=== PATIENT | male | born 1965 | race Two or more races ===

== ENCOUNTER 2019-05-23 17:45 | Inpatient (IN) | payer MEDICARE, BC ==
[~2019-05-23] VITALS: Ht 185.4 cm; Wt 98.9 kg
[2019-05-23 20:30] VITALS: BP 153/80
--- NOTE | 2019-05-23 20:30 | NUR ---
GPS ADMISSION NOTES: ADMITTED THIS 53-Y/O, MALE, HOMELESS. PATIENT ADMITTED ON 5150 HOLD FOR DTO/GD. PER HOLD PT. WAS DISHEVELED, UNCOOPERATIVE, AGGRESSIVE, AGITATED, SLAPPING AT THE DOOR, SCREAMING AND YELLING AT STAFF IN THE CONTEXT OF PARANOID DELUSIONS, BUT MAKING VERY LITTLE SENSE. UPON FACE TO FACE ASSESSMENT, PATIENT IS A&O X2, FEELING DEPRESSED, COOPERATIVE WITH CARE. VERBALIZATION OF FEELING ENCOURAGED. DENIES SI/HI/AVH AT THIS TIME. IN NO APPARENT DISTRESS NOTED. SKIN BODY ASSESSMENT DONE AND NOTED WITH RIGHT ELBOW OPEN WOUND. WOUND CONSULT ORDERED. PT ADVISED OF THE HOLD. PT RIGHTS HANDBOOK AND GUIDELINES BOOK GIVEN & DISCUSSED TO THE PATIENT. PT BELONGINGS WERE INVENTORIED & CHECKED FOR CONTRABAND. PT. IS UNDER THE PSYCHIATRIC CARE OF DR. CANADA, ORDERS OBTAINED & UNDER THE MEDICAL CARE OF DR. KUHN. PATIENT EDUCATED TO THE USE OF CALL LALA. BED ALARM ON. ENVIRONMENTAL SAFETY CHECK DONE. BED LOCKED & IN LOW POSITION. WILL CONTINUE TO MONITOR Q15 MINUTES FOR SAFETY & BEHAVIOR. Addendum: 05/24/19 at 0704 by CHACHO ALFRED RN PATIENT CONTINUES TO REFUSE MEPILEX ON HIS RIGHT ELBOW DESPITE OF EXPLANATION RISKS AND BENEFITS. WILL CONTINUE TO MONITOR.
[2019-05-23] MEDS ORDERED: DOXY50SY PO (21:28)
[2019-05-23] MEDS ORDERED: DIVA500T2 PO (21:28)
[2019-05-23] MEDS ORDERED: OLAN15TA3 PO (21:28)
[2019-05-23] MEDS ORDERED: MULT-635 PO (21:28)
[2019-05-23] MEDS ORDERED: LORAZEPAM 0.5 MG TABLET PO PRN (21:30)
[2019-05-23] MEDS ORDERED: MAGNESIUM HYDROXIDE 30 ML UDC PO PRN (21:30)
[2019-05-23] MEDS ORDERED: BLOOD SUGAR DIAGNOSTIC 1 EACH STRIP IN ONE (21:30)
[2019-05-23] MEDS ORDERED: MAG HYDROX/AL HYDROX/SIMETH 30 ML UDC PO PRN (21:30)
[2019-05-23] MEDS ORDERED: HALO100A2 IM (21:36)
[2019-05-24 07:47] LABS: CHOLESTEROL 150 mg/dL (<200); HDL CHOLESTEROL 46 mg/dL (40-60); LDL 90 mg/dL (0-99); TRIGLYCERIDES 79 mg/dL (30-150)
[2019-05-24 08:00] VITALS: BP 143/72
[2019-05-24] MEDS: NICOTINE PATCH (21MG) 21 MG PATCH.TD24 TD SCH (09:00)
[2019-05-24] MEDS: MULTIVIT W/MINERALS 1 TAB TABLET PO SCH (09:00)
[2019-05-24] MEDS: HALOPERIDOL 5 MG TABLET PO SCH ×2 (10:35→16:55)
[2019-05-24] MEDS: BENZTROPINE MESYLATE (1 MG) 1 MG TABLET PO SCH ×2 (10:35→16:55)
[2019-05-24] MEDS: DIVALPROEX SODIUM 500 MG TABLET.DR PO SCH ×2 (10:35→22:16)
--- NOTE | 2019-05-24 10:56 | NUR ---
WOUND CARE CONSULT: PT NOT SEEN FOR SKIN ASSESSMENT TODAY DUE TO RN AND MD REPORTING THAT PT IS VERY AGGRESSIVE AT THIS TIME. WILL SEE PT PT CONDITION PERMITS. PER NURSING ASSESSMENT AND ADMISSION PHOTOS, PT HAS WOUND TO RT ELBOW. DR DIETZ CONSULTED FOR SURGICAL CONSULT. CURRENT PERNELL SCORE IS 21.
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
[2019-05-24 11:48] LABS: ALBUMIN 3.2 g/dL (3.4-5.0); BILIRUBIN,TOTAL 0.3 mg/dL (0.2-1.0); CALCIUM, SERUM 8.4 mg/dL (8.5-10.1); CREATININE 0.7 mg/dL (0.6-1.3); POTASSIUM 4.3 mmol/L (3.5-5.1); TOTAL PROTEIN, SERUM 6.3 g/dL (6.4-8.2)
[2019-05-24] MEDS: THERAHONEY GEL 1.5 OZ TUBE TP SCH (12:00)
--- NOTE | 2019-05-24 12:28 | NUR ---
INITIAL DISCHARGE PLAN: Pts mother Lisa [phone] wishes for pt to return home [address] [place] [address]. Per pt he wants to return to "[facility] on a bus" and says he is homeless. SW will help form a safe and proper discharge in collaboration with .
--- NOTE | 2019-05-24 14:07 | NUR ---
GPS RN NOTE: PT REFUSED WOUND CARE WHEN ASKED AT NOON AND 1400. WILL TRY AGAIN LATER
[2019-05-24] MEDS: LORAZEPAM 0.5 MG TABLET PO PRN (14:56)
--- NOTE | 2019-05-24 15:28 | NUR ---
GROUP NOTE: SW encouraged pt to attend group therapy on this present day discussing "suicidality." Pt is not appropriate for group at this time, pt is selectively mute and responding to internal stimuli.
[2019-05-24 16:00] VITALS: BP 137/84
[2019-05-24] MEDS ORDERED: OLANZAPINE 10 MG VIAL IM ONE (16:30)
[2019-05-24] MEDS ORDERED: LORAZEPAM INJ 2 MG/ML VIAL IM ONE (16:30)
--- NOTE | 2019-05-24 17:33 | NUR ---
AROUND 1610 PATIENT CAME UP TO RN AND ASKED FOR "IM SHOT OF GEODON". PATIENT APPEARED AGITATED AND ANXIOUS. PATIENT ALREADY HAD PO ANTI ANXIETY MEDICATION ADMINISTERED,1MG ATIVAN PO ORDERED. PATIENT WAS REDIRECTED AND GIVEN OPTIONS FOR DIVERSION FOR HIS ANXIETY. FEW MINUTES LATER PATIENT RETURNED TO NURSING STATION REQUESTING IM MEDICATION. DR CANADA WAS PAGED. PATIENT CONTINUED TO BECOME INCREASINGLY AGITATED, WAS SNAPPING HIS FINGERS ASKING FOR IM SHOT, AND SEEMED TO BE RESPONDING TO INTERNAL STIMULI. PATIENT STATED HE FELT LIKE HE WAS SPINNING. DR CANADA CALLED BACK AROUND 1625 AND ZYPREXA 10MG IM AND ATIVAN 1MG IM WAS ORDERED. PATIENT VOLUNTARILY ACCEPTED MEDICATION ADMINISTRATION.
[2019-05-24] MEDS: ZOLPIDEM TARTRATE 10 MG TABLET PO PRN (22:20)
--- NOTE | 2019-05-24 23:54 | NUR ---
PT REFUSED WOUND CARE, ANXIOUS, RESTLESS, LABILE, REDIRECTABLE. PT ONLY WANTED SANDWICHES AND JUICE. WILL CONTINUE TO MONITOR FOR MOOD, BEHAVIOR AND SAFETY.
[2019-05-25] MEDS: MULTIVIT W/MINERALS 1 TAB TABLET PO SCH (08:18)
[2019-05-25] MEDS: DIVALPROEX SODIUM 500 MG TABLET.DR PO SCH ×2 (08:18→21:44)
[2019-05-25] MEDS: HALOPERIDOL 5 MG TABLET PO SCH ×4 (08:18→21:44)
[2019-05-25] MEDS: BENZTROPINE MESYLATE (1 MG) 1 MG TABLET PO SCH ×2 (08:18→16:27)
[2019-05-25] MEDS: NICOTINE PATCH (21MG) 21 MG PATCH.TD24 TD SCH ×2 (08:19→09:00)
[2019-05-25] MEDS: LORAZEPAM 0.5 MG TABLET PO PRN (10:31)
[2019-05-25] MEDS: THERAHONEY GEL 1.5 OZ TUBE TP SCH (10:42)
[2019-05-25] MEDS: ACETAMINOPHEN 325 MG TABLET PO PRN (13:03)
[2019-05-25] MEDS: TRAMADOL HCL 50 MG TABLET PO PRN (14:19)
--- NOTE | 2019-05-25 15:33 | NUR ---
GROUP NOTE: SW encouraged pt to attend group on this present day discussing "discharge planning." S: "I live [place] the bushes but I have a house to go to. Maybe I'll just go and live with my neighbors. I don't know where I'll go." O: Pt did not maintain eye contact and was not appropriately dressed. Pt with labile mood and got up and walked away from group. A: Pt has gained insight and is unable to verbalize a plan for discharge. P: SW will continue to encourage self-regulation of mood and encourage pt to accept his illness and engage in recovery.
[2019-05-25 16:00] VITALS: BP 135/95
[2019-05-26 08:00] VITALS: BP 119/58
[2019-05-26] MEDS: NICOTINE PATCH (21MG) 21 MG PATCH.TD24 TD SCH (09:00)
[2019-05-26] MEDS: THERAHONEY GEL 1.5 OZ TUBE TP SCH (09:00)
[2019-05-26] MEDS: DIVALPROEX SODIUM 500 MG TABLET.DR PO SCH ×2 (09:00→21:20)
[2019-05-26] MEDS: MULTIVIT W/MINERALS 1 TAB TABLET PO SCH (09:01)
[2019-05-26] MEDS: BENZTROPINE MESYLATE (1 MG) 1 MG TABLET PO SCH ×2 (09:01→16:33)
[2019-05-26] MEDS: HALOPERIDOL 5 MG TABLET PO SCH ×4 (09:02→21:20)
--- NOTE | 2019-05-26 11:12 | NUR ---
Pt. still refusing for wound dressing and application of the med to the wound. Explained on the impottance and the risk and still refusing.
[2019-05-26] MEDS: LORAZEPAM 0.5 MG TABLET PO PRN (13:13)
[2019-05-26] MEDS: TRAMADOL HCL 50 MG TABLET PO PRN (15:26)
[2019-05-26 16:00] VITALS: BP 125/68
--- NOTE | 2019-05-26 20:00 | NUR ---
PATIENT REFUSED VS
--- NOTE | 2019-05-26 22:00 | NUR ---
PATIENT IN BED, ASLEEP, AROUSEABLE BY VOICE, AGGRESSIVE, HOSTILE, DENIES SUICIDAL IDEATION AT THIS TIME, TOOK ALL MEDICATIONS, THROWING TRASH ON THE SIDE OF BED, MESSY, REFUSED WOUND CARE, WILL CONTINUE TO MONITOR Q15 MINUTES WITH THE HELP OF STAFF TO MAINTAIN SAFETY
--- NOTE | 2019-05-26 22:00 | NUR ---
PATIENT HOSTILE, THROWING THINGS ON THE RIGHT SIDE OF BED, DISHEVELLED, REFUSED WOUND CARE, TOOK ALL PM MEDS
--- NOTE | 2019-05-27 06:12 | NUR ---
PATIENT ASLEEP MOST OF THE SHIFT, GETTING UP TO VOID, STILL HOSTILE WHEN BED ALARM GOES OFF, ISOLATIVE
[2019-05-27 08:00] VITALS: BP 128/66
[2019-05-27] MEDS: THERAHONEY GEL 1.5 OZ TUBE TP SCH ×2 (09:00→14:51)
[2019-05-27] MEDS: NICOTINE PATCH (21MG) 21 MG PATCH.TD24 TD SCH (09:25)
[2019-05-27] MEDS: DIVALPROEX SODIUM 500 MG TABLET.DR PO SCH ×3 (09:25→21:15)
[2019-05-27] MEDS: BENZTROPINE MESYLATE (1 MG) 1 MG TABLET PO SCH ×2 (09:25→17:49)
[2019-05-27] MEDS: MULTIVIT W/MINERALS 1 TAB TABLET PO SCH (09:25)
[2019-05-27] MEDS: HALOPERIDOL 5 MG TABLET PO SCH ×4 (09:25→21:15)
[2019-05-27] MEDS: LORAZEPAM 0.5 MG TABLET PO PRN ×2 (10:53→18:51)
--- NOTE | 2019-05-27 11:13 | NUR ---
pt. requesting ativan,medicated with 1 mg po.
[2019-05-27] MEDS: TRAMADOL HCL 50 MG TABLET PO PRN (14:46)
--- NOTE | 2019-05-27 14:46 | NUR ---
med. for pain with ultram.
[2019-05-27 16:06] VITALS: BP 150/78
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
--- NOTE | 2019-05-27 19:53 | NUR ---
RN NOTES: PATIENT RESTING IN HIS BED, EASILY AGITED ,DISHELVED ,PARANOID DENIES SI/HI/AVH AT THIS TIME,.ENCOURAGED FOR VERBALIZATION OF FEELINGS, SAFETY PRECAUTIONS IMPLEMENTED. INTERACT WITH ENGAGED, WILL CONTINUE TO MONITOR Q15MIN ROUNDS FOR SAFETY AND BEHAVIOR.
--- NOTE | 2019-05-27 20:17 | NUR ---
RN NOTES: PT. REFUSED VITAL SIGNS , ENCOURAGED X3 STILL REFUSED, PT. BEHAVIOUR VERY UNCOOPERTIVE,
--- NOTE | 2019-05-28 06:20 | NUR ---
GPS RN CLOSING NOTE: PATIENT RESTING IN BED ASLEEP, AROUSES EASILY. NO ACUTE DISTRESS NOTED. DENIES PAIN OR DISCOMFORT.UNCOOPERTIVE, NO AGITATION NOTED AT THIS TIME/ BUT EASILY AGITAED. DENIES SI/HI/AVH AT THIS TIME. SAFETY PRECAUTIONS IMPLEMENTED.ENCOURAGED PT. TO VERBALIZED ANY FEELING, WILL CONTINUE TO MONITOR FOR PT'S SAFETY AND BEHAVIOR.
[2019-05-28] MEDS: LORAZEPAM 0.5 MG TABLET PO PRN ×3 (08:10→20:17)
[2019-05-28] MEDS: MULTIVIT W/MINERALS 1 TAB TABLET PO SCH (08:10)
[2019-05-28] MEDS: HALOPERIDOL 5 MG TABLET PO SCH ×4 (08:10→20:17)
[2019-05-28] MEDS: BENZTROPINE MESYLATE (1 MG) 1 MG TABLET PO SCH ×2 (08:10→16:57)
[2019-05-28] MEDS: DIVALPROEX SODIUM 500 MG TABLET.DR PO SCH ×3 (08:10→20:16)
[2019-05-28] MEDS: NICOTINE PATCH (21MG) 21 MG PATCH.TD24 TD SCH (08:12)
--- NOTE | 2019-05-28 08:12 | NUR ---
RN NOTE- AGITATION / PT ANXIOUS AND LOUD WITH THIS RN DURING MED PASS. ANGRY AFFECT. ATIVAN 1 MG GIVEN AT THIS TIME.
[2019-05-28] MEDS: THERAHONEY GEL 1.5 OZ TUBE TP SCH (09:00)
--- NOTE | 2019-05-28 09:06 | NUR ---
RN NOTE- MED REFUSAL/ PT REFUSING MED TREATMENT TO ELBOW. EXPLAINED BENEFITS. WILL ATTEMPT LATER.
[2019-05-28] MEDS: TRAMADOL HCL 50 MG TABLET PO PRN ×2 (10:32→18:03)
[2019-05-28 13:32] LABS: BASOPHILS % (AUTO) 0.8 % (0.0-2.0); EOSINOPHILS % (AUTO) 1.5 % (0.0-6.0); HEMATOCRIT 43 % (39-51); HEMOGLOBIN 14.2 g/dL (13.5-17.5); LYMPHOCYTES # (AUTO) 1.5 /CMM (0.8-4.8); LYMPHOCYTES % (AUTO) 24.7 % (20.0-44.0); MEAN CORPUSCULAR HGB CONC 33 g/dl (31.0-36.0); MEAN CORPUSCULAR VOLUME 86 fL (80-96); MONOCYTES # (AUTO) 0.6 /CMM (0.1-1.30); MONOCYTES % (AUTO) 10.6 % (2.0-12.0); NEUTROPHILS # (AUTO) 3.7 /CMM (1.8-8.9); NEUTROPHILS % (AUTO) 62.4 % (43.0-81.0); PLATELET COUNT (AUTO) 368 /CMM (150-450); WHITE BLOOD COUNT (AUTO) 5.9 K/uL (4.3-11.0)
--- NOTE | 2019-05-28 13:40 | NUR ---
RN NOTE- AGITATION/ PT W AGITATION. REQUESTED PRN. ATIVAN 1 MG GIVEN.
[2019-05-28 14:28] LABS: ALBUMIN 3.6 g/dL (3.4-5.0); BILIRUBIN,TOTAL 0.5 mg/dL (0.2-1.0); CREATININE 0.8 mg/dL (0.6-1.3); TOTAL PROTEIN, SERUM 6.9 g/dL (6.4-8.2)
--- NOTE | 2019-05-28 15:00 | NUR ---
RN NOTE-WOUND CARE/ PT WOUND CARE DONE . RT ELBOW CLEANSED W NS, DRIED W 4X4 GAUZE. THERA-HONEY GEL APPLIED W APPLICATOR AND DRESSING APPLIED. TOLERATED WELL.
[2019-05-28 16:00] VITALS: BP 142/68
[2019-05-28] MEDS ORDERED: HALOPERIDOL LACTATE INJ 5 MG/ML VIAL IM ONE (16:00)
[2019-05-28] MEDS ORDERED: BENZTROPINE MESYLATE (2MG/2ML) 2 MG/2 ML AMPUL IM ONE (16:00)
--- NOTE | 2019-05-28 16:00 | NUR ---
RN NOTE-AGITATION/ PT WITH INCREASING AGITATION, RESPONDING TO INTERNAL STIMULUS, ROLLING ON FLOOR, CLAPPING HANDS LOUDLY AND TALKING LOUDLY. DR WU ORDERED [id number] MG IM WITH COGENTIN 2 MG IM. PT GIVEN INJECTIONS WITH PATIENTS COMPLIANCE,. SECURITY AND RADIO SALES ACCOUNT EXECUTIVE IN ATTENDANCE. MONITORING BEHAVIOR Addendum: 05/28/19 at 1759 by RYLEE ANDINO RN RN NOTE- ADDENDUM. ABOVE AGITATION ENTRY AND MEDICATION ADMINISTRATION WAS DONE AT PATIENT REQUEST.
[2019-05-28 20:19] VITALS: BP 117/44
--- NOTE | 2019-05-28 20:20 | NUR ---
Pt c/o anxiety. Least restrictive measures ineffective. Ativan 1 mg po given as ordered. Will continue to monitor.
--- NOTE | 2019-05-28 21:30 | NUR ---
Post 1 hour ativan effective. Pt is calm in bed. Will continue to monitor.
[2019-05-28] MEDS: ZOLPIDEM TARTRATE 10 MG TABLET PO PRN (21:32)
--- NOTE | 2019-05-28 21:33 | NUR ---
Pt c/o insomnia. Least restrictive measures ineffective. Ambien 10 mg po given as ordered. Will continue to monitor.
--- NOTE | 2019-05-28 22:38 | NUR ---
Post 1 hr rikiien effective. Pt asleep in bed easy to arouse. Will continue to monitor. Frequent visual check done for safety.
[2019-05-29 08:00] VITALS: BP 116/64
[2019-05-29] MEDS: MULTIVIT W/MINERALS 1 TAB TABLET PO SCH (08:18)
[2019-05-29] MEDS: BENZTROPINE MESYLATE (1 MG) 1 MG TABLET PO SCH ×2 (08:18→17:08)
[2019-05-29] MEDS: NICOTINE PATCH (21MG) 21 MG PATCH.TD24 TD SCH (08:19)
[2019-05-29] MEDS: HALOPERIDOL 5 MG TABLET PO SCH ×4 (08:19→17:08)
[2019-05-29] MEDS: DIVALPROEX SODIUM 500 MG TABLET.DR PO SCH ×3 (08:19→21:29)
[2019-05-29] MEDS: THERAHONEY GEL 1.5 OZ TUBE TP SCH (08:24)
--- NOTE | 2019-05-29 09:05 | NUR ---
RN NOTE-MEDICATIONS/ DR CANADA SAW PT. INCREASED PTS HALDOL 10 MG TID FROM HALDOL 5 MG QID. INFORMED MD OF RECENT HALDOL 5 MG ADMINISTRATION. ORDERED ANOTHER HALDOL 10 MG TO START NOW. COMPLYING.
[2019-05-29] MEDS: LORAZEPAM 0.5 MG TABLET PO PRN (10:47)
[2019-05-29] MEDS: TRAMADOL HCL 50 MG TABLET PO PRN ×2 (10:48→17:08)
--- NOTE | 2019-05-29 10:48 | NUR ---
RN NOTE-AGITATION/ PT REQUESTING PRN FOR ANXIETY. ATIVAN 1 MG GIVEN AT THIS TIME.
--- NOTE | 2019-05-29 14:05 | NUR ---
RN NOTE-WOUND CARE/ PT WOUND CARE DONE . RT ELBOW CLEANSED W NS, DRIED W 4X4 GAUZE. PINK GRANULATION TISSUE. MINIMAL EXUDATE. NO PURULENCE. NO ODOR. PT STATES MINIMAL PAIN. THERA-HONEY GEL APPLIED W APPLICATOR AND DRESSING APPLIED. TOLERATED WELL.
[2019-05-29] MEDS ORDERED: LORAZEPAM INJ 2 MG/ML VIAL IM STA (14:57)
[2019-05-29] MEDS ORDERED: OLANZAPINE 10 MG VIAL IM STA (14:57)
[2019-05-29 14:58] LABS: BASOPHILS # (AUTO) 0.1 /CMM (0.0-0.2); BASOPHILS % (AUTO) 0.8 % (0.0-2.0); EOSINOPHILS % (AUTO) 1.3 % (0.0-6.0); HEMATOCRIT 40 % (39-51); HEMOGLOBIN 13.2 g/dL (13.5-17.5); LYMPHOCYTES # (AUTO) 1.6 /CMM (0.8-4.8); LYMPHOCYTES % (AUTO) 24.9 % (20.0-44.0); MEAN CORPUSCULAR HGB CONC 33 g/dl (31.0-36.0); MEAN CORPUSCULAR VOLUME 85 fL (80-96); MONOCYTES # (AUTO) 0.6 /CMM (0.1-1.30); MONOCYTES % (AUTO) 9.9 % (2.0-12.0); NEUTROPHILS % (AUTO) 63.1 % (43.0-81.0); PLATELET COUNT (AUTO) 304 /CMM (150-450); RED BLOOD CELL COUNT(AUTO) 4.65 MIL/uL (4.5-6.0); WHITE BLOOD COUNT (AUTO) 6.4 K/uL (4.3-11.0)
--- NOTE | 2019-05-29 15:19 | NUR ---
RN NOTE-AGITATION/ PT RESPONDING TO INTERNAL STIMULUS. CLAPPING LOUDLY, PACING, BECOMING AGGRESSIVE, HEARING THINGS - "A COMPUTER TWO HOUSES AWAY IS PLACING THINGS IN MY BRAIN" PT REQUESTED IM SHOT. DR CANADA ORDERED ZYPREXA 10 MG AND ATIVAN 1 MG IM. GIVEN W STAFF PRESENT. TOLERATED WELL.
[2019-05-29 15:23] LABS: ALBUMIN 3.5 g/dL (3.4-5.0); BILIRUBIN,TOTAL 0.4 mg/dL (0.2-1.0); CALCIUM, SERUM 8.6 mg/dL (8.5-10.1); CREATININE 0.7 mg/dL (0.6-1.3); POTASSIUM 3.9 mmol/L (3.5-5.1); TOTAL PROTEIN, SERUM 6.5 g/dL (6.4-8.2)
[2019-05-29] MEDS ORDERED: BENZTROPINE MESYLATE (2MG/2ML) 2 MG/2 ML AMPUL IM ONE (15:30)
--- NOTE | 2019-05-29 15:36 | NUR ---
GROUP NOTE: GUSTABO encouraged pt to attend group on this present day discussing "discharge planning." Pt refused to attend group. Pt is not appropriate for group at this time. Pt is actively responding to internal stimuli and is pacing the hallway and is restless. Addendum: 05/29/19 at 1542 by SURENDRA MONTEJO ERROR
--- NOTE | 2019-05-29 15:42 | NUR ---
GROUP NOTE: GUSTABO encouraged pt to attend group on this present day discussing "mood-compliance." Pt refused to attend group. Pt is not appropriate for group at this time. Pt is actively responding to internal stimuli and is pacing the hallway and is restless. Addendum: 05/29/19 at 1542 by SURENDRA MONTEJO "Mood-regulation."
[2019-05-29 16:00] VITALS: BP 102/61
--- NOTE | 2019-05-29 16:28 | NUR ---
RN NOTE-AGITATION FOLLOW UP/ PT CALMER AND DIRECTABLE AFTER ZYPREXA AND ATIVAN IM. PT CALM IN ROOM AND MARTÍNEZ. DECREASED SYMPTOMS. RX EFFECTIVE
--- NOTE | 2019-05-29 19:57 | NUR ---
GPS RN OPENING NOTES: PATIENT RESTING IN HIS BED, EASILY AGITED ,DISHELVED ,PARANOID DENIES SI/HI/AVH AT THIS TIME,.ENCOURAGED FOR VERBALIZATION OF FEELINGS, SAFETY PRECAUTIONS IMPLEMENTED. INTERACT WITH ENGAGED, WILL CONTINUE TO MONITOR Q15MIN ROUNDS FOR SAFETY AND BEHAVIOR.
--- NOTE | 2019-05-30 06:30 | NUR ---
GPS RN CLOSING NOTE: PATIENT IN BED ASLEEP,COMFORTABLY, NO ACUTE DISTRESS NOTED. DENIES PAIN OR DISCOMFORT. NO AGITATION NOTED IN DURING SHIFT. NO BEHAVIOR PROBLEMS NOTED ,DENIES SI/HI/AVH AT THIS TIME. SAFETY PRECAUTIONS IMPLEMENTED.ALL NEEDS ATTENDED AND ANTICIPATED, ENCOURGED FOR VERBALIZED ANY FEELING ,BED ALARM ON AND IN LOCKED POSITION. WILL CONTINUE TO MONITOR FOR PT'S SAFETY AND BEHAVIOR .
[2019-05-30 08:00] VITALS: BP 112/68
[2019-05-30] MEDS: THERAHONEY GEL 1.5 OZ TUBE TP SCH (09:00)
[2019-05-30] MEDS: NICOTINE PATCH (21MG) 21 MG PATCH.TD24 TD SCH (09:00)
[2019-05-30] MEDS: MULTIVIT W/MINERALS 1 TAB TABLET PO SCH (09:54)
[2019-05-30] MEDS: DIVALPROEX SODIUM 500 MG TABLET.DR PO SCH ×4 (09:54→21:56)
[2019-05-30] MEDS: HALOPERIDOL 5 MG TABLET PO SCH ×3 (09:54→16:12)
[2019-05-30] MEDS: BENZTROPINE MESYLATE (1 MG) 1 MG TABLET PO SCH ×2 (09:54→16:12)
[2019-05-30] MEDS: LORAZEPAM 0.5 MG TABLET PO PRN (10:15)
--- NOTE | 2019-05-30 10:16 | NUR ---
GPS/RN-NOTES PATIENT REQUESTING ATIVAN. ATIVAN 1MG P.O GIVEN PRN ORDER.
--- NOTE | 2019-05-30 10:33 | NUR ---
GPS/RN-NOTES PATIENT REFUSED WOUND TREATMENT ,EXPLAINED RISK AND BENEFITS BUT PATIENT GETS ANGRY.
[2019-05-30] MEDS ORDERED: OLANZAPINE 10 MG VIAL IM ONE (13:30)
--- NOTE | 2019-05-30 13:31 | NUR ---
GPS/RN-NOTES NOTED PATIENT WITH INTIMIDATING WITH LOUD VOICE ,DISROBING ,TOUCHING STAFF IN HER BACK. REDIRECTED PATIENT,STATED" GIVE ME MY MEDICATION SHOT" .DR. CANADA MADE AWARE WITH T.O ORDER OF ZYPREXA 10MG IM X1. NOTED AND CARRIED OUT.
--- NOTE | 2019-05-30 14:00 | NUR ---
GPS /RN-NOTES PATIENT LAYING IN BED CALM,NO ACUTE DISTRESS NOTED.
[2019-05-30 16:00] VITALS: BP 117/50
--- NOTE | 2019-05-30 22:54 | NUR ---
GPS RN NOTE PT REFUSED 2100 MEDICATION DEPAKOTE 500MG 1 TAB PO. PT WAS A LITTLE IRRITABLE AND STATED "I DON'T WANT TO TAKE ANY MEDICATION TONIGHT". TEACHING PROVIDED BY SKILLED NURSE ON THE IMPORTANCE OF MEDICATION COMPLIANCE. PT IN BED. WILL CONTINUE TO MONITOR.
--- NOTE | 2019-05-31 07:06 | NUR ---
RN NOTES PT APPEARS DEPRESSED, IRRITABLE, COMMANDING, WITHDRAWN AND ISOLATIVE. REFUSED V/S, PM MEDICATION, AND WOUND CARE. SLEPT MOST OF THE NIGHT. WILL CONTINUE TO MONITOR AND ENDORSE TO AM NURSE.
[2019-05-31 08:00] VITALS: BP 126/68
[2019-05-31] MEDS: THERAHONEY GEL 1.5 OZ TUBE TP SCH (09:00)
[2019-05-31] MEDS: NICOTINE PATCH (21MG) 21 MG PATCH.TD24 TD SCH ×2 (09:00→09:35)
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
[2019-05-31] MEDS: BENZTROPINE MESYLATE (1 MG) 1 MG TABLET PO SCH ×2 (09:35→17:52)
[2019-05-31] MEDS: HALOPERIDOL 5 MG TABLET PO SCH ×4 (09:35→21:00)
[2019-05-31] MEDS: MULTIVIT W/MINERALS 1 TAB TABLET PO SCH (09:35)
[2019-05-31] MEDS: DIVALPROEX SODIUM 500 MG TABLET.DR PO SCH ×3 (09:38→21:00)
[2019-05-31] MEDS: HYDROGEL DRESSING 90 GM TUBE TP SCH (11:30)
[2019-05-31] MEDS: LORAZEPAM 0.5 MG TABLET PO PRN (12:05)
[2019-05-31] MEDS ORDERED: HALOPERIDOL 5 MG TABLET PO SCH (13:00)
--- NOTE | 2019-05-31 14:16 | NUR ---
Group Note: SW invited the patient to attend group therapy on 05/31/2019 1 pm to discuss "what changes they would like to see in their lives as a result of their stay in [facility]". SW assessed the patient's ability to participate in therapy. The pt. is not appropriate for group therapy as he presents with agitation, aggression and pacing the halls.
--- NOTE | 2019-05-31 15:50 | NUR ---
Family Contact: SW called the pts mother Lisa ([phone]) and informed her that the pts hearing was upheld.
[2019-05-31 16:00] VITALS: BP 125/71
--- NOTE | 2019-05-31 17:00 | NUR ---
NURSING NOTE: PT REQUESTED DRESSING CHANGE ON HIS RIGHT ELBOW FOR THE SECOND TIME. DRESSING CHANGE WAS DONE PER PT REQUEST. PT THEN DECIDED TO REMOVE THE DRESSING AGAIN ALTHOUGH WAS TOLD NOT TO. PT KEEPS ASKING FOR SOMETHING TO HELP PT GO TO SLEEP. REALITY ORIENTATION HAS BEEN DONE. WILL CONTINUE TO MONITOR.
[2019-05-31 20:54] VITALS: BP 132/82
[2019-06-01] MEDS: NICOTINE PATCH (21MG) 21 MG PATCH.TD24 TD SCH (08:34)
[2019-06-01] MEDS: HALOPERIDOL 5 MG TABLET PO SCH ×4 (08:34→21:32)
[2019-06-01] MEDS: BENZTROPINE MESYLATE (1 MG) 1 MG TABLET PO SCH ×2 (08:34→16:45)
[2019-06-01] MEDS: DIVALPROEX SODIUM 500 MG TABLET.DR PO SCH ×3 (08:34→21:32)
[2019-06-01] MEDS: MULTIVIT W/MINERALS 1 TAB TABLET PO SCH (08:35)
[2019-06-01] MEDS: LORAZEPAM 0.5 MG TABLET PO PRN ×2 (08:43→14:43)
[2019-06-01] MEDS: HYDROGEL DRESSING 90 GM TUBE TP SCH (09:00)
--- NOTE | 2019-06-01 10:02 | NUR ---
GPS RN OPENING NOTE: RECEIVED PATIENT IN BED RESTING. PATIENT COMPLIES WITH MEDICATION ADMINISTRATION. REQUESTED ATIVAN FOR ANXIETY. ADMINISTERED ORDERED.DENIES SI/ HI BUT CURRENTLY HAS AUDITORY HALLUCINATIONS.ENVIRONMENTAL SAFETY CHECKS DONE. ALL NEEDS ATTENDED TO. NO SIGNS OF DISTRESS NOTED. WILL CONTINUE TO MONITOR Q15 FOR SAFETY AND BEHAVIOR
--- NOTE | 2019-06-01 10:03 | NUR ---
REFUSED WOUND CARE THIS AM.
--- NOTE | 2019-06-01 11:02 | NUR ---
FAMILY CONTACT: and GUSTABO called the pts mother Lisa ([phone]) to discuss pts discharge and treatment plan. Mother is opposing discharge as she states pt is not stable. explained that pt has not been aggressive and has been complaint with treatment therefore he is anticipating discharge for Wednesday06/05/19. Mother was angry and kept interrupting the MD stating that she wants pt to be hospitalized longer. explained that if pt is no longer meeting criteria for acute psychiatric hospitalization per [place] Mental Health Law and Medicare Law, MD is unable to keep pt here longer. explained that it appears that mother is unable to care for pt and recommended pt be referred to a SNF and stated that if pt refuses he may be referred to a correction. MD informed mother that he will adjust medication for continued stabilization. Mother agreed.
--- NOTE | 2019-06-01 12:27 | NUR ---
SNF REFERRAL: GUSTABO faxed SNF referral to [facility] Address: [address] [place] [address] for review.
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
[2019-06-01] MEDS: OLANZAPINE 5 MG/TAB.RAPDIS PO SCH ×2 (13:42→16:45)
--- NOTE | 2019-06-01 14:00 | NUR ---
SNF REFERRAL: GUSTABO faxed SNF referral to Thien real estate marketing coordinator at [facility] Address: [address], [place] [address] for review.
--- NOTE | 2019-06-01 14:35 | NUR ---
SNF REFERRAL: SW received a call from Thien environmental systems coordinator at [facility] Address: [address] [place] [address] stating pt has been accepted to the facility.
--- NOTE | 2019-06-01 15:15 | NUR ---
PUBLIC GUARDIAN: GUSTABO contacted [facility] Public Guardian Address: [address], [place] [address] and spoke to a credit clerk who stated pts case has been closed and is no longer under LPS conservatorship.
[2019-06-01] MEDS: TRAMADOL HCL 50 MG TABLET PO PRN (15:41)
[2019-06-01 16:00] VITALS: BP 124/64
[2019-06-01] MEDS: ACETAMINOPHEN 325 MG TABLET PO PRN (17:17)
[2019-06-01] MEDS: ZOLPIDEM TARTRATE 10 MG TABLET PO PRN (21:30)
[2019-06-02] MEDS: DIVALPROEX SODIUM 500 MG TABLET.DR PO SCH ×3 (07:48→21:10)
[2019-06-02] MEDS: MULTIVIT W/MINERALS 1 TAB TABLET PO SCH (08:34)
[2019-06-02] MEDS: HALOPERIDOL 5 MG TABLET PO SCH ×4 (08:34→21:10)
[2019-06-02] MEDS: OLANZAPINE 5 MG/TAB.RAPDIS PO SCH ×3 (08:34→16:16)
[2019-06-02] MEDS: NICOTINE PATCH (21MG) 21 MG PATCH.TD24 TD SCH (08:34)
[2019-06-02] MEDS: BENZTROPINE MESYLATE (1 MG) 1 MG TABLET PO SCH ×2 (08:34→16:02)
[2019-06-02] MEDS: HYDROGEL DRESSING 90 GM TUBE TP SCH (09:06)
--- NOTE | 2019-06-02 10:00 | NUR ---
RN NOTE-WOUND CARE/ PT WOUND CARE DONE . RT ELBOW CLEANSED W NS, DRIED W 4X4 GAUZE. PINK GRANULATION TISSUE. MINIMAL EXUDATE. NO PURULENCE. NO ODOR. PT STATES MINIMAL PAIN. HYDROGEL APPLIED W APPLICATOR AND DRESSING APPLIED. TOLERATED WELL.
[2019-06-02] MEDS: LORAZEPAM 0.5 MG TABLET PO PRN ×3 (11:54→21:11)
--- NOTE | 2019-06-02 11:54 | NUR ---
RN NOTE-AGITATION/ PT ANXIOUS REQUESTING PRN MEDS. ATIVAN 1 MG GIVEN.
[2019-06-02] MEDS: TRAMADOL HCL 50 MG TABLET PO PRN (14:53)
--- NOTE | 2019-06-02 15:50 | NUR ---
GROUP THERAPY: Pt sat in group discussing "suicidal ideation." However, pt was only present for 10 minutes and then got up and walked away. Pt did not return to the group. SW will continue to encourage pt to attend group milieu.
[2019-06-02 16:00] VITALS: BP 128/83
--- NOTE | 2019-06-02 17:56 | NUR ---
RN NOTE- AGITATION/ PT ANXIOUS. REQUESTING MEDS AGAIN,. STATES 'COMPUTER TWO HOUSES AWAY FROM HOSPITAL IS SENDING MESSAGES'. FEELS ANXIOUS. FEELS 'FLOOR MOVING'. ATIVAN 1 MG GIVEN.
--- NOTE | 2019-06-02 20:14 | NUR ---
PT WAS RECEIVED FR THE MORNING SHIFT IN BED SLEEPING QUIETLY, NO S/S OF PAIN AND DISCOMFORT, CONTINUE TO MONITOR PT FOR MOOD AND BEHAVIOR, CK PT Q15 MIN.
--- NOTE | 2019-06-02 21:00 | NUR ---
GPS ROUGHER MACHINE OPERATOR NOTES: ANXIETY PT IS REQUESTING HIS PRN MEDS FOR ANXIETY, CLAIMING HIS GETTING ANXIOUS, GIVEN PT HIS PRN MED OF ATIVAN 1MG, CONTINUE TO MONITOR PT .
--- NOTE | 2019-06-02 22:00 | NUR ---
GPS SAFETY LAMP KEEPER NOTES: INSOMNIA PT STILL LYING IN THE BED BUT WIDE AWAKE, NURSE ASK PT IF HE WANT HIS PRN MEDS FOR INSOMNIA SO HE CAN SLEEP, GIVEN PTS PRN MED AMBIEN 10 MG, CONTINUE TO MONITOR PT FOR INSOMNIA.
[2019-06-02] MEDS: ZOLPIDEM TARTRATE 10 MG TABLET PO PRN (22:21)
[2019-06-03 08:00] VITALS: BP 115/65
[2019-06-03] MEDS: DIVALPROEX SODIUM 500 MG TABLET.DR PO SCH ×3 (08:51→21:11)
[2019-06-03] MEDS: HYDROGEL DRESSING 90 GM TUBE TP SCH (09:00)
[2019-06-03] MEDS: NICOTINE PATCH (21MG) 21 MG PATCH.TD24 TD SCH (09:00)
[2019-06-03] MEDS: HALOPERIDOL 5 MG TABLET PO SCH ×4 (09:17→21:11)
[2019-06-03] MEDS: BENZTROPINE MESYLATE (1 MG) 1 MG TABLET PO SCH ×2 (09:17→16:59)
[2019-06-03] MEDS: OLANZAPINE 5 MG/TAB.RAPDIS PO SCH ×3 (09:17→16:59)
[2019-06-03] MEDS: MULTIVIT W/MINERALS 1 TAB TABLET PO SCH (09:17)
[2019-06-03] MEDS: LORAZEPAM 0.5 MG TABLET PO PRN (13:04)
--- NOTE | 2019-06-03 13:06 | NUR ---
GPS/RN-NOTES NOTED PATIENT PACING IN THE HALLWAY TO THE NURSE STATION. KEEP ASKING WHEN HE'S DISCHARGE DAY. DR. CANADA IN THE UNIT AND EXPLAINED . PATIENT REQUESTING ATIVAN. ATIVAN 1MG P.O GIVEN PRN ORDER. WILL CONT. MONITORING FOR SAFETY AND BEHAVIOR.
--- NOTE | 2019-06-03 14:00 | NUR ---
GPS/RN-NOTES PATIENT IN THE DAY ROOM ,CALM NO ACUTE DISTRESS NOTED.
[2019-06-03 16:00] VITALS: BP 125/70
[2019-06-03 21:10] VITALS: BP 114/71
[2019-06-03] MEDS: ZOLPIDEM TARTRATE 10 MG TABLET PO PRN (21:11)
[2019-06-04] MEDS: DIVALPROEX SODIUM 500 MG TABLET.DR PO SCH ×3 (08:01→21:08)
[2019-06-04] MEDS: HALOPERIDOL 5 MG TABLET PO SCH ×4 (08:02→21:08)
[2019-06-04] MEDS: OLANZAPINE 5 MG/TAB.RAPDIS PO SCH ×3 (08:02→16:42)
[2019-06-04] MEDS: MULTIVIT W/MINERALS 1 TAB TABLET PO SCH (08:02)
[2019-06-04] MEDS: NICOTINE PATCH (21MG) 21 MG PATCH.TD24 TD SCH (08:02)
[2019-06-04] MEDS: BENZTROPINE MESYLATE (1 MG) 1 MG TABLET PO SCH ×2 (08:02→16:42)
[2019-06-04] MEDS: HYDROGEL DRESSING 90 GM TUBE TP SCH (08:25)
--- NOTE | 2019-06-04 09:00 | NUR ---
RN NOTE-CURRENTLY COMPLIES WITH MEDICATION ADMINISTRATION. REQUESTED ATIVAN FOR ANXIETY. ADMINISTERED ORDERED.DENIES SI/ HI ENVIRONMENTAL SAFETY CHECKS DONE. ALL NEEDS ATTENDED TO. NO SIGNS OF DISTRESS NOTED. WILL CONTINUE TO MONITOR Q15 FOR SAFETY AND BEHAVIOR
--- NOTE | 2019-06-04 09:30 | NUR ---
RN NOTE-WOUND CARE/ PT WOUND CARE DONE . RT ELBOW CLEANSED W NS, DRIED W 4X4 GAUZE. PINK GRANULATION TISSUE. MINIMAL EXUDATE. NO PURULENCE. NO ODOR. PT STATES MINIMAL PAIN. HYDRO GEL APPLIED W APPLICATOR AND DRESSING APPLIED. TOLERATED WELL.
[2019-06-04] MEDS: LORAZEPAM 0.5 MG TABLET PO PRN ×2 (09:59→15:55)
--- NOTE | 2019-06-04 10:00 | NUR ---
RN NOTE-AGITATION/ PT FEELING ANXIETY. REQUESTING ATIVAN 1MG . GIVEN AT THIS TIME.
--- NOTE | 2019-06-04 11:05 | NUR ---
RN NOTE- AGITATION FOLLOW UP. RX EFFECTIVE. PT CALM
--- NOTE | 2019-06-04 15:56 | NUR ---
RN NOTE- AGITATION/ PT C/O ANXIETY AND RESTLESSNESS. ATIVAN 1 MG GIVEN
[2019-06-04 16:10] VITALS: BP 112/59
--- NOTE | 2019-06-04 17:00 | NUR ---
RN NOTE - AGITATION FOLLOW UP- MEDICATION EFFECTIVE. CALM
[2019-06-05] MEDS: DIVALPROEX SODIUM 500 MG TABLET.DR PO SCH (07:11)
[2019-06-05 08:00] VITALS: BP 112/76
[2019-06-05] MEDS: BENZTROPINE MESYLATE (1 MG) 1 MG TABLET PO SCH ×2 (08:14→18:08)
[2019-06-05] MEDS: HALOPERIDOL 5 MG TABLET PO SCH (08:14)
[2019-06-05] MEDS: OLANZAPINE 5 MG/TAB.RAPDIS PO SCH ×3 (08:14→18:08)
[2019-06-05] MEDS: MULTIVIT W/MINERALS 1 TAB TABLET PO SCH (08:14)
[2019-06-05] MEDS: NICOTINE PATCH (21MG) 21 MG PATCH.TD24 TD SCH (08:14)
--- NOTE | 2019-06-05 09:00 | NUR ---
INDIVIDUAL MEETING: SW spoke with pt regarding his discharge. He states that he wants to go to his moms house and wants SW to call her to confirm.
--- NOTE | 2019-06-05 09:00 | NUR ---
RN NOTE- PT VALPROIC ACID LEVEL DECREASED. MD AWARE. POSSIBLY CHEEKING RX?. MD CHANGED TO HALDOL DEC AND DEPAKOTE LIQUID. DENIES SI/ HI ENVIRONMENTAL SAFETY CHECKS DONE. ALL NEEDS ATTENDED TO. NO SIGNS OF DISTRESS NOTED. WILL CONTINUE TO MONITOR Q15 FOR SAFETY AND BEHAVIOR
--- NOTE | 2019-06-05 09:15 | NUR ---
FAMILY CONTACT: GUSTABO contacted pts mother Lisa [phone] to discuss pts discharge plan. SW informed her that pt wishes to be discharged to her home and she states that she is unable to care for him at the moment as she just had cancer surgery and is very ill. She expressed concerns stating that she believes pt is cheecking medication as yesterday when she spoke with him on the phone he was very delusional stating that she was robot who was going to kill him and also threatened to kill her. Mother states that pt cannot be discharged to a non-locked facility and that she is in the process of recertifying for LPS Conservatorship.
--- NOTE | 2019-06-05 09:20 | NUR ---
INDIVIDUAL MEETING: and GUSTABO met with pt to discuss his medication non-compliance. informed pt that he has not been taking his Depakote as his levels were very low. MD informed him that he was going to change his medication to liquid form and also give him Haldol Dec pt refused saying he will not take Haldol Dec and stated that he would RIESE him if he didn't. Pt then agreed and signed the medication consent form. SW also informed him that he is unable to return to his mothers house as she is very ill and unable to care for him. Pt stated that he agrees to placement but refuses if its locked. GUSTABO will work with MD and pt for appropriate placement.
[2019-06-05] MEDS ORDERED: HALOPERIDOL DECANOATE IM 100 MG/ML AMPUL IM ONE (09:30)
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
[2019-06-05] MEDS: HYDROGEL DRESSING 90 GM TUBE TP SCH (09:44)
--- NOTE | 2019-06-05 11:15 | NUR ---
RN NOTE- RX/ HALDOL DECANOATE 100 MG GIVEN IM AT THIS TIME W PTS CONSENT. TOLERATED WELL.
[2019-06-05] MEDS: VALPROIC ACID 250 MG/5 ML UDC PO SCH ×2 (12:19→12:22)
--- NOTE | 2019-06-05 12:35 | NUR ---
RN NOTE-RX REFUSAL/ DOCTOR CHANGED DEPAKOTE PILLS TO DEPAKOTE LIQUID 500 MG Q8H AND PT REFUSED [address] CANADA NOTIFIED AND ORDERED DEPAKOTE SPRINKLES 500 MG Q8H. ORDERS COMPLIED WITH. PT BEING OPPOSITIONAL AND RESPONDING TO INTERNAL STIMULUS. STATED "I'M GOD. I GET PICTURES SENT TO ME FROM A COMPUTER. MY FATHER GAVE ME THIS." 1300 ZYPREXA DOSE GIVEN AT THIS TIME
[2019-06-05] MEDS: LORAZEPAM 0.5 MG TABLET PO PRN (12:42)
--- NOTE | 2019-06-05 12:43 | NUR ---
RN NOTE-AGITATION/ PT REFUSING DEPAKOTE AND YELLING IN HALLWAY. PT CLEARLY PSYCHOTIC AND AGGRESSIVE. DR CANADA ORDERED HALDOL 10 MG IM AND BENADRYL 25 MG IM X ONE DOSE. COMPLYING WITH ORDER.
[2019-06-05] MEDS ORDERED: diphenhydrAMINE HCL 50 MG/ML VIAL IM ONE (13:00)
[2019-06-05] MEDS ORDERED: DIVALPROEX SODIUM 125 MG CAP.SPRINK PO SCH (13:00)
[2019-06-05] MEDS: DIVALPROEX SODIUM 250 MG TABLET.DR PO SCH ×2 (13:00→21:13)
[2019-06-05] MEDS ORDERED: HALOPERIDOL LACTATE INJ 5 MG/ML VIAL IM ONE (13:00)
--- NOTE | 2019-06-05 13:07 | NUR ---
RN NOTE- AGITATION/ HALDOL 10 MG AND BENADRYL 25 MG GIVEN IM WITH PT REQUEST. TOLERATED WELL.
--- NOTE | 2019-06-05 13:08 | NUR ---
SNF: SW met with Thien brownfield program coordinator at [facility] Address: [address] [facility], [place] [address] who came to assess pt. Pt agreed to be discharged to this facility.
--- NOTE | 2019-06-05 13:45 | NUR ---
RN NOTE-AGITATION FOLLOW UP/ PT CALMER THOUGH STILL PSYCHOTIC AND RESPONDING. STATING HE'S "..GODS INSTRUMENT". REDIRECTED TO ROOM WITH SECURITY AND MALE STAFF. MONITORING BEHAVIOR.
--- NOTE | 2019-06-05 14:38 | NUR ---
RN NOTE-AGITATION FOLLOW UP/ CALM. IN ROOM ON BED. QUIET
--- NOTE | 2019-06-05 15:25 | NUR ---
FAMILY CONTACT: SW received a call from pts mother Lisa [phone] requesting psychiatrist file for a T-CON and contact [facility] Public Guardian so they can notify [facility] Public Guardian's Office. GUSTABO stated she would notify and also contact [facility] Public Guardians Office to confirm a T-CON can be filed outside of [facility] [place].
[2019-06-05] MEDS ORDERED: LORAZEPAM INJ 2 MG/ML VIAL IM STA (15:34)
--- NOTE | 2019-06-05 15:40 | NUR ---
RN NOTE-AGITATION/ PT YELLING AND RESPONDING AGAIN. PSYCHOTIC SYMPTOMS. STATED "YOU ARE . GOD KILLED YOU. I AM HIM" DR CANADA ORDERED ZYPREXA 10 MG AND ATIVAN 2 MG IM STAT. COMPLIED
--- NOTE | 2019-06-05 15:41 | NUR ---
PUBLIC GUARDIAN: GUSTABO contacted Kb Sheriff, [employer] Architect ([phone]) and left a voicemail requesting information regarding out of the [facility] T-Con.
[2019-06-05] MEDS ORDERED: OLANZAPINE 10 MG VIAL IM ONE (16:00)
--- NOTE | 2019-06-05 16:40 | NUR ---
RN NOTE- AGITATION FOLLOW UP/ PT QUIETER, CALM, LAYING IN BED AND UP AGAIN. WALKING FROM ROOM TO DAY ROOM. SOMNOLENT. MONITORING FOR BEHAVIOR AND SEDATION.
--- NOTE | 2019-06-05 18:08 | NUR ---
RN NOTE- RX/ PT ZYPREXA 10 MG PO AND COGENTIN 1 MG PO GIVEN AT THIS TIME. PT AWAKE IN BED TALKING. CALM, DIRECTABLE, STATING, "i FEEL MUCH BETTER." PT WITH CONTINUED PSYCHOSIS BUT AGGRESSIVE BEHAVIORS HAVE DECREASED.
--- NOTE | 2019-06-05 20:00 | NUR ---
REFUSED VITALS PATIENT REFUSED VITALS DESPITE OF RISKS & BENEFITS EXPLANATIONS.
--- NOTE | 2019-06-05 21:20 | NUR ---
GPS RN NOTE : BEHAVIOR NURSE APPROACHED THE PATIENT TO GIVE HIS 2100 DEPAKOTE MEDICINE, PATIENT GOT AGITATED & REFUSED, ASKED THE NURSE NOT TO BOTHER HIM AT ALL. OFFERED SNACK & FLUIDS WHEN PT. GOT RELAXED. AFTER HE HAD SNACK & PO FLUIDS, SCHEDULED MEDICINE WAS OFFERED TO THE PT. AGAIN, PT. STATED," WHY YOU KEEP COMING HERE, GIVE ME THAT SHIT & LEAVE." PATIENT TOOK THE MEDICINE & ASKED RN TO LEAVE HIM ALONE. PT. CLOSED HIS EYES & STAYED IN BED. WILL CONTINUE TO MONITOR Q 15 MINS. FOR SAFETY & BEHAVIOR.
[2019-06-06] MEDS: ZOLPIDEM TARTRATE 10 MG TABLET PO PRN (00:58)
--- NOTE | 2019-06-06 01:00 | NUR ---
PRN AMBIEN GIVEN PATIENT CAME OUT OF HIS ROOM, VERBALIZED THAT HE IS UNABLE TO SLEEP AT THIS TIME. SNACK & JUICES GIVEN. PRN AMBIEN 10 MG PO GIVEN. WILL CONTINUE TO MONITOR.
[2019-06-06] MEDS: DIVALPROEX SODIUM 250 MG TABLET.DR PO SCH ×3 (05:21→21:21)
--- NOTE | 2019-06-06 05:31 | NUR ---
GPS RN NOTE PATIENT HAS BEEN SLEEPING, AMBIEN WAS EFFECTIVE. INTERMITTENT SNACK/JUICES GIVEN TO THE PATIENT & TOLERATED WELL. REMAINED CALM/RELAXED AT NIGHT. WILL CONTINUE TO MONITOR CLOSELY FOR SAFETY & BEHAVIOR.
--- NOTE | 2019-06-06 08:11 | NUR ---
PUBLIC GUARDIAN: GUSTABO contacted Kb Sheriff, [employer]ting Worker ([phone]) who informed SW that a T-CON cannot be filed due to pt being a resident of [facility] and not [facility].
[2019-06-06] MEDS: NICOTINE PATCH (21MG) 21 MG PATCH.TD24 TD SCH ×2 (09:00→09:04)
[2019-06-06] MEDS: OLANZAPINE 5 MG/TAB.RAPDIS PO SCH ×2 (09:04→17:58)
[2019-06-06] MEDS: MULTIVIT W/MINERALS 1 TAB TABLET PO SCH (09:04)
[2019-06-06] MEDS: HYDROGEL DRESSING 90 GM TUBE TP SCH (09:07)
[2019-06-06] MEDS: BENZTROPINE MESYLATE (1 MG) 1 MG TABLET PO SCH ×2 (09:16→17:58)
[2019-06-06] MEDS: LORAZEPAM 0.5 MG TABLET PO PRN ×2 (12:04→17:58)
--- NOTE | 2019-06-06 12:04 | NUR ---
RN NOTE:PATIENT MEDICATED WITH ATIVAN 1MG FOR AGITATION.
--- NOTE | 2019-06-06 15:34 | NUR ---
INDIVIDUAL MEETING: SW attempted to discuss with pt his discharge plan to a SNF. Pt became verbally aggressive saying "I want to fucking leave now, call the doctor right now" and was unable to engage in conversation.
[2019-06-06] MEDS: TRAMADOL HCL 50 MG TABLET PO PRN (16:04)
--- NOTE | 2019-06-06 16:05 | NUR ---
Group Note: Pt encouraged the pt to attend group therapy on 06/06/19 at 2pm discussing the topic of concerns around discharge plan. Pt appeared to become agitated when the SW stated that he can discuss how he feels about being discharged to a locked facility. SW did not feel safe as the pt has a history of becoming aggressive. SW deemed the pt inappropriate for group therapy due to safety.
--- NOTE | 2019-06-06 19:46 | NUR ---
REFUSED VITALS PATIENT REFUSED VITALS DESPITE OF RISKS & BENEFITS EXPLANATIONS. PATIENT IS EASILY AGITATED & NON COMPLAINT AT THIS TIME.
--- NOTE | 2019-06-06 23:15 | NUR ---
GPS RN NOTE URINE COLLECTED & SENT TO THE LAB.
[2019-06-07 01:25] LABS: APPEARANCE,URINE CLEAR (CLEAR); BILIRUBIN,URINE NEGATIVE (NEGATIVE); BLOOD, URINE NEGATIVE Ery/uL (NEGATIVE); COLOR,URINE YELLOW (YELLOW); KETONES,URINE TRACE (NEGATIVE); LEUKOCYTE ESTERASE ,URINE NEGATIVE (NEGATIVE); NITRITE, URINE NEGATIVE (NEGATIVE); PROTEIN,URINE NEGATIVE (NEGATIVE); UGLUCOSE NEGATIVE (NEGATIVE); UROBILINOGEN,URINE 0.2 EU/dL (0.2)
[2019-06-07 01:30] LABS: BACTERIA,URINE Rare /HPF (None Seen); RBC,URINE 0-2 /HPF (0-2); SQUAMOUS EPITHELIAL CELL,UR Rare /HPF (None Seen); WBC,URINE 0-2 /HPF (0-3)
[2019-06-07] MEDS: DIVALPROEX SODIUM 250 MG TABLET.DR PO SCH ×3 (05:16→21:11)
[2019-06-07 08:00] VITALS: BP 130/80
[2019-06-07] MEDS: NICOTINE PATCH (21MG) 21 MG PATCH.TD24 TD SCH (08:55)
[2019-06-07] MEDS: HYDROGEL DRESSING 90 GM TUBE TP SCH (08:56)
[2019-06-07] MEDS: LORAZEPAM 0.5 MG TABLET PO PRN ×3 (08:56→23:39)
[2019-06-07] MEDS: MULTIVIT W/MINERALS 1 TAB TABLET PO SCH (08:56)
[2019-06-07] MEDS: BENZTROPINE MESYLATE (1 MG) 1 MG TABLET PO SCH ×2 (08:56→16:01)
[2019-06-07] MEDS: OLANZAPINE 5 MG/TAB.RAPDIS PO SCH ×2 (08:56→16:01)
[2019-06-07] MEDS: TRAMADOL HCL 50 MG TABLET PO PRN (15:23)
[2019-06-07 16:00] VITALS: BP 125/80
--- NOTE | 2019-06-07 16:25 | NUR ---
GROUP NOTE: SW encouraged pt to participate in group therapy on this present day discussing "discharge planning." Pt was present and said "I don't want to say anything." Pt then walked away from group. Pt kept coming in and out and was being disruptive towards group.
--- NOTE | 2019-06-07 19:40 | NUR ---
GPS RN OPENING NOTES PATIENT IN BED ALERT AND ORIENTED X 3. VERBALLY RESPONSIVE AND ABLE TO FOLLOW DIRECTIONS BREATHING REGULAR AND UNLABORED ON ROOM AIR. NO COMPLAINTS OF PAIN/DISCOMFORT REPORTED AT THIS TIME. REMAINED CALM AND COOPERATIVE, MED COMPLIANT. WILL CONTINUE TO MONITOR FOR SAFETY AND BEHAVIOR.
[2019-06-07 20:36] VITALS: BP 111/47
[2019-06-07 22:00] VITALS: BP 111/47
--- NOTE | 2019-06-07 23:40 | NUR ---
GPS RN NOTES COMPLAINED OF FEELING ANXIOUS, ATIVAN 1MG GIVEN BY MOUTH. NON-PHARMACOLOGICAL INTERVENTIONS PROVIDED. WILL CONTINUE TO MONITOR.
[2019-06-08] MEDS: DIVALPROEX SODIUM 250 MG TABLET.DR PO SCH (05:08)
--- NOTE | 2019-06-08 06:20 | NUR ---
GPS RN CLOSING NOTES PATIENT IN BED ASLEEP WITH NO S/S OF DISTRESS NOTED. NO S/S OF PAIN/DISCOMFORT OBSERVED. WILL ENDORSE TO MORNING SHIFT FOR CONTINUITY OF CARE.
[2019-06-08 08:00] VITALS: BP 120/66
--- NOTE | 2019-06-08 08:00 | NUR ---
RN-CO: PATIENT REFUSED TO WEAR HIS ARM BAND ( KEEPS ON REMOVING IT.)
[2019-06-08] MEDS: NICOTINE PATCH (21MG) 21 MG PATCH.TD24 TD SCH ×2 (09:00→09:24)
[2019-06-08] MEDS: OLANZAPINE 5 MG/TAB.RAPDIS PO SCH (09:24)
[2019-06-08] MEDS: BENZTROPINE MESYLATE (1 MG) 1 MG TABLET PO SCH (09:24)
[2019-06-08] MEDS: MULTIVIT W/MINERALS 1 TAB TABLET PO SCH (09:24)
[2019-06-08] MEDS: HYDROGEL DRESSING 90 GM TUBE TP SCH (09:25)
--- NOTE | 2019-06-08 10:27 | NUR ---
DISCHARGE NOTE: Pt was discharged at 11:00am via AM [facility] ([facility]) [id number] [place] [address]. [place] [address] P: [phone]. Pts Mother Lisa [phone] has been notified and agreed with discharge plan. Pts mood was euthymic with congruent affect. Pt denied suicidal/homicidal ideation and denied visual/auditory hallucinations. Pt will address his substance use with Psychiatrist: Dr. Sharee Brown [address] [place] [address] [address] [address] [phone] and will be under the care of [employer] Etch Operator: Dr Arizmendi Address: [address] [place] [address] [address], [place] [address] . The multidisciplinary exit care form was done, printed, signed, and given to the patient.
[2019-06-08] MEDS: LORAZEPAM 0.5 MG TABLET PO PRN (10:58)
--- NOTE | 2019-06-08 10:58 | NUR ---
rn notes administered Ativan 1 mg po prn for anxiety before discharge per MD Gatica order.
--- NOTE | 2019-06-08 11:10 | NUR ---
RN HEMATOLOGY NOTES PATIENT DISCHARGE AT THIS TIME GOING SNF. PATIENT A/O X3, NO ACUTE RESPIRATORY DISTRESS. V/S STABLE. AMBULATORY SELF CARE. PATIENT REFUSED SI/HI/AVH AT THIS TIME. MED RECONCILIATION REVIEWED AND EXPLAINED TO PATIENT. REPORT GIVEN SNF SHERIFFS DETECTIVE MARY. SHERIFFS DETECTIVE VERBALIZED UNDERSTANDING. BELONGING WITH THE PATIENT. PATIENT REFUSED SIGN PAPERWORK COSIGN WITH CHARGE NURSE DAIN CROOK. PICTURE TAKEN ON RIGHT ELBOW,BUT REFUSED LEFT KNEE. PATIENT WILL FOLLOW SNF PSYCHIATRIST, AND NETWORK CABLE INSTALLER. PATIENT VETERINARY PHYSIOLOGIST BY AMBULANCE.
[2019-07-03] MEDS ORDERED: HALOPERIDOL DECANOATE IM 100 MG/ML AMPUL IM SCH (09:00)
== END 2019-06-08 11:10 | DRG 885 ==
LOC: GPS 20:19
PROVIDERS: ADMIT Psychiatry & Neurology Psychiatry; ATTEND Nurse Practitioner Acute Care
DX: F20.0 Paranoid schizophrenia (principal); E44.1 Mild protein-calorie malnutrition; F29 Unspecified psychosis not due to a substance or known physiological condition; F41.9 Anxiety disorder, unspecified; S51.002A Unspecified open wound of left elbow, initial encounter; X58.XXXA Exposure to other specified factors, initial encounter; Y92.9 Unspecified place or not applicable; Z59.0 Homelessness; F15.10 Other stimulant abuse, uncomplicated; Z91.19 Patient's noncompliance with other medical treatment and regimen; Z73.6 Limitation of activities due to disability; R79.89 Other specified abnormal findings of blood chemistry
CPT/HCPCS: 36415; 80053-TC; 80061-TC; 80164-TC; 81000-TC; 82962-TC; 85025-TC; 87081-TC; 87086-TC; A6248; J0515; J1200; J1630; J1631; J2060; J3490